=== PATIENT | male | born 1970 | race Caucasian/White ===

== ENCOUNTER 2017-04-22 08:02 | Emergency (ER) | payer OTHER, BC ==
[2017-04-22 08:08] VITALS: BP 142/90; PULSE 77; TEMP 98.1; BMI 21.1
--- NOTE | 2017-04-22 09:14 | PDOC ---
History of Present Illness - General Chief Complaint: Injury Stated Complaint: LACERATED LT HAND Time Seen by Provider: 04/22/17 08:56 History Source: Patient Exam Limitations: No Limitations - History of Present Illness Initial Comments: 04/22/17 17:35 My chief complaint: Laceration of left hand caught on wire at work History of present illness: Patient is a 47-year-old male with a history of anxiety/depression here today after sustaining a laceration to his left dorsal hand proximal to his left thumb. Patient denies any numbness of his left hand. Patient is up-to-date with tetanus. Patient denies any other injuries. 04/22/17 17:39 Occurred: reports: just prior to arrival Severity: reports: moderate Pain Location: reports: upper extremity (left dorsal hand proximal to thumb) Method of Injury: Yes: other (cut on a fence ) Modifying Factors: improves with: None Loss of Consciousness: no loss of consciousness Associated Symptoms (Fall): other (became lightheaded when trying to anesthetize laceration) Past History - Past Medical History Allergies/Adverse Reactions: Allergies Allergy/AdvReac Type Severity Reaction Status Date / Time No Known Allergies Allergy Verified 04/22/17 08:08 Home Medications: Ambulatory Orders NK [No Known Home Medication] 04/22/17 Psychiatric Problems: Yes (anxiety, depression) - Suicide/Smoking/Psychosocial Hx Smoking History: Never smoked Information on smoking cessation initiated: No Hx Alcohol Use: No Drug/Substance Use Hx: No Substance Use Type: Alcohol Review of Systems - Review of Systems Able to Perform ROS?: Yes Constitutional: No: Symptoms Reported HEENTM: No: Symptoms Reported Respiratory: No: Symptoms reported Cardiac (ROS): Yes: Lightheadedness (after anesthetizing left hand laceration lasted approx 5 minutes) ABD/GI: No: Symptoms Reported : No: Symptoms Reported Musculoskeletal: No: Symptoms Reported Integumentary: Yes: Other (laceration left hand proximal to thumb ) Neurological: No: Symptoms reported *Physical Exam - Vital Signs Last Vital Signs Temp Pulse Resp BP Pulse Ox 98.1 F 77 18 142/90 99 04/22/17 08:06 04/22/17 08:06 04/22/17 08:06 04/22/17 08:06 04/22/17 08:06 - Physical Exam General Appearance: Yes: Appropriately Dressed HEENT: positive: EOMI, SIMON Respiratory/Chest: positive: Lungs Clear, Normal Breath Sounds. negative: Chest Tender, Respiratory Distress Cardiovascular: positive: Regular Rhythm, Regular Rate, S1, S2 Extremity: positive: Normal Capillary Refill, Normal Range of Motion (left all digits left hand ) Integumentary: positive: Other (laceration left dorsal hand proximal to left thumb linear, no foreign body noted) Neurologic: positive: Alert, Normal Response, Respond to painful stimul, Responsive. negative: Numbness, Sensory Deficit Procedures - Consent Consent obtained: From Patient - Laceration/Wound Repair Left Proximal Dorsal Hand Wound Length: 2.6 to 5.0 cm Wound Explored: clean Wound's Depth, Shape: superficial, linear Irrigated w/ Saline: Yes Betadine Prep: Yes Anesthesia: 1% Lidocaine Amount of Anesthetic (ccs): 4 Wound Repaired With: Sutures Suture Size/Type: 5:0 Number of Sutures: 5 Sterile Dressing Applied: Yes Splint Applied: No Medical Decision Making - Medical Decision Making 04/22/17 17:36 Patient is a 47-year-old male with a history of ADD here today after sustaining a laceration to his left dorsal hand proximal to his left thumb. Patient denies any numbness of his left hand. Patient is up-to-date with tetanus. Patient denies any other injuries. laceration left dorsal hand PLAN: 5 interrupted suture left dorsal hand oxygen 2 liter via nasal canula for 10 minutes after pt. started to c/o feeling lightheaded. Patient was lie down with legs elevated within fifth 10 minutes patient started to feel better oxygen removed 04/22/17 17:38 04/22/17 17:39 *DC/Admit/Observation/Transfer Diagnosis at time of Disposition: Laceration of hand Qualifiers: Encounter type: initial encounter Foreign body presence: without foreign body Laterality: left Qualified Code(s): S61.412A - Laceration without foreign body of left hand, initial encounter - Discharge Dispostion Disposition: HOME Condition at time of disposition: Stable - Patient Instructions Additional Instructions: You may wash her left hand with antibacterial soap and water twice daily do not scrub area where sutures are pat dry and apply tiny amount of bacitracin ointment cover with bandage except at night when sleeping Return here in 10-14 days for suture removal or sooner if any redness around wound or discharge from wound or any fever Patient voiced understanding of discharge instructions and all questions were answered
== END 2017-04-22 10:05 | disposition home or self-care (01) ==
LOC: JERFT 08:02
PROC: 0HQGXZZ Repair Left Hand Skin, External Approach (ICD-10-PCS; principal; 2017-04-22)
DX: S61.412A Laceration without foreign body of left hand, initial encounter (principal); W26.8XXA Contact with other sharp object(s), not elsewhere classified, initial encounter; Y93.H3 Activity, building and construction; Y92.69 Other specified industrial and construction area as the place of occurrence of the external cause; Y99.0 Civilian activity done for income or pay; F98.8 Other specified behavioral and emotional disorders with onset usually occurring in childhood and adolescence
CPT/HCPCS: 99281-25